=== PATIENT | male | born 1985 | race Caucasian/White ===

== ENCOUNTER 2019-03-15 18:22 | Emergency (ER) | payer BC, MEDICAID ==
--- NOTE | 2019-03-15 19:14 | Emergency Department Record ---
History of Present Illness - General Chief Complaint: Knee injury Stated Complaint: R KNEE PAIN Time Seen by Provider: 03/15/19 19:05 Source: Patient Mode of Arrival: Ambulatory Limitations: No limitations - History of Present Illness Initial Comments: pt injured his knee a week ago. it feels like it is getting worse. it was injured when he was getting out of a truck when he twisted it. it feels like its getting worse.. it hurts in the back of his knee. Complaint: Knee injury Onset/Timin -: Days(s) Injury: Knee: Right Type of Injury: Other Place: Street/outdoors Severity: Mild Improves With: Rest Worsens With: Weight bearing Context: Other Treatments Prior to Arrival: NSAIDS Travel Screening - Travel/Exposure Within Last 30 Days Have you traveled within the last 30 days?: No - Travel/Exposure Within Last Year Have you traveled outside the [place] in the last year?: No - Travel Symptoms Symptom Screening: None Review of Systems Reviewed: No additional complaints except as noted below Constitutional: Reports: As per HPI. Denies: Chills, Fever, Malaise, Night sweats, Weakness, Weight change Eyes: Reports: As per HPI. Denies: Eye discharge, Eye pain, Photophobia, Vision change ENT: Reports: As per HPI. Denies: Congestion, Dental pain, Ear pain, Epistaxis, Hearing loss, Throat pain Respiratory: Reports: As per HPI. Denies: Cough, Dyspnea, Hemoptysis, Stridor, Wheezes Cardiovascular: Reports: As per HPI. Denies: Arrhythmia, Chest pain, Dyspnea on exertion, Edema, Murmurs, Orthopnea, Palpitations, Paroxysmal nocturnal dyspnea, Rheumatic Fever, Syncope Endocrine: Reports: As per HPI. Denies: Fatigue, Heat or cold intolerance, Polydipsia, Polyuria Gastrointestinal: Reports: As per HPI. Denies: Abdominal pain, Constipation, Diarrhea, Hematemesis, Hematochezia, Melena, Nausea, Vomiting Genitourinary: Reports: As per HPI. Denies: Dysuria, Frequency, Hematuria, Incontinence, Retention, Testicular pain, Testicular mass, Urgency Musculoskeletal: Reports: As per HPI. Denies: Arthralgia, Back pain, Gout, Joint swelling, Myalgia, Neck pain Skin: Reports: As per HPI. Denies: Bruising, Change in color, Change in hair/nails, Lesions, Pruritus, Rash Neurological: Reports: As per HPI. Denies: Abnormal gait, Confusion, Headache, Numbness, Paresthesias, Seizure, Tingling, Tremors, Vertigo, Weakness Psychiatric: Reports: As per HPI. Denies: Anxiety, Auditory hallucinations, Depression, Homicidal thoughts, Suicidal thoughts, Visual hallucinations Hematological/Lymphatic: Reports: As per HPI. Denies: Anemia, Blood Clots, Easy bleeding, Easy bruising, Swollen glands Past Medical History - SOCIAL HISTORY Smoking Status: Current every day smoker Alcohol Use: Rare Drug Use: None - RESPIRATORY Hx Respiratory Disorders: No - CARDIOVASCULAR Hx Cardio Disorders: No - NEURO Hx Neuro Disorders: No - GI Hx GI Disorders: No - Hx Genitourinary Disorders: No - ENDOCRINE Hx Endocrine Disorders: No - MUSCULOSKELETAL Hx Musculoskeletal Disorders: No - PSYCH Hx Psych Problems: No - HEMATOLOGY/ONCOLOGY Hx Hematology/Oncology Disorders: No Family Medical History Any Significant Family History?: No Physical Exam - General General Appearance: Alert, Oriented x3, Cooperative, Mild distress - Head Head exam: Normal inspection - Eye Eye exam: Normal appearance, PERRL, EOMI Pupils: Normal accommodation - ENT ENT exam: Normal exam, Mucous membranes moist, Normal external ear exam, Normal orophraynx Ear exam: Normal external inspection. negative: External canal tenderness Nasal Exam: Normal inspection. negative: Discharge, Sinus tenderness Mouth exam: Normal external inspection, Tongue normal Teeth exam: Normal inspection. negative: Dental caries Throat exam: Normal inspection. negative: Tonsillar erythema, Tonsillar exudate - Neck Neck exam: Normal inspection, Full ROM. negative: Tenderness - Respiratory Respiratory exam: Normal lung sounds bilaterally. negative: Respiratory distress - Cardiovascular Cardiovascular Exam: Regular rate, Normal rhythm, Normal heart sounds - GI/Abdominal GI/Abdominal exam: Soft, Normal bowel sounds. negative: Tenderness - Rectal Rectal exam: Deferred - exam: Deferred - Extremities Extremities exam: Normal inspection, Full ROM, Normal capillary refill, Tenderness (along mcl and lcl and joint line) - Back Back exam: Reports: Normal inspection, Full ROM. Denies: Muscle spasm, Rash noted, Tenderness - Neurological Neurological exam: Alert, Normal gait, Oriented X3, Reflexes normal - Psychiatric Psychiatric exam: Normal affect, Normal mood - Skin Skin exam: Dry, Intact, Normal color, Warm Course Vital Signs 03/15/19 18:54 Temperature 98.1 F Pulse Rate 79 Respiratory 14 Rate Blood Pressure 153/87 Pulse Ox 97 Disposition Disposition: Discharge Clinical Impression: Knee sprain Qualifiers: Encounter type: initial encounter Involved ligament of knee: unspecified ligament Laterality: right Qualified Code(s): S83.91XA - Sprain of unspecified site of right knee, initial encounter Disposition: Home, Self-Care Condition: (1) Good Instructions: Knee Sprain (ED), Knee Immobilizer (ED) Additional Instructions: follow up with dr bryant. ice and elevate. return sooner if worse. motrin for pain Referrals: EVA BRYANT [DOCTOR OF OSTEOPATH] - [facility] [Provider Group] Forms: Patient Portal Access, Return to Work/School Quality - Quality Measures Quality Measures: N/A - Blood Pressure Screening Does Patient Have Any of the Following: No Blood Pressure Classification: Pre-Hypertensive BP Reading Systolic Measurement: 153 Diastolic Measurement: 87 Screening for High Blood Pressure: < Pre-Hypertensive BP, F/U Documented > [G8950] Pre-Hypertensive Follow-up Interventions: Follow-up with rescreen every year.
[2019-03-15] MEDS ORDERED: IBUPROFEN 600 MG TABLET PO ONE (19:51)
--- NOTE | 2019-03-18 14:11 | RADIOLOGY REPORT ---
EXAM: RIGHT KNEE HISTORY: PATIENT STEPPED OUT OF A TRUCK TWO MONTHS AGO WITH PAIN. TECHNIQUE: Four views of the right knee were obtained. Comparison: None. Encounter: Initial. FINDINGS: Some very minor spurring at the knee. No definite fracture, dislocation, or joint effusion identified. There may be some prepatellar soft tissue swelling. If knee symptoms persist, follow-up MRI of the right knee may be useful for further evaluation if not contraindicated. IMPRESSION: 1. NO DEFINITE FRACTURE OF THE RIGHT KNEE IDENTIFIED. 2. VERY MINOR SPURRING. 3. POSSIBLE PREPATELLAR SOFT TISSUE SWELLING. JOB NUMBER: [id number] [facility]
== END 2019-03-15 20:08 | disposition home or self-care (01) ==
LOC: ER 18:22
DX: S83.91XA Sprain of unspecified site of right knee, initial encounter (principal); X50.1XXA Overexertion from prolonged static or awkward postures, initial encounter; Y92.410 Unspecified street and highway as the place of occurrence of the external cause; F17.210 Nicotine dependence, cigarettes, uncomplicated
CPT/HCPCS: 99283

== ENCOUNTER 2019-04-23 06:59 | Day surgery (SDC) | payer BC ==
[~2019-04-23 06:59] MED LIST: ACETAMINOPHEN 1,000 MG/100 ML BTL IVPB ONE
[2019-04-23] MEDS ORDERED: KETOROLAC 30 MG/ML VIAL IVP ONE (07:00)
[2019-04-23] MEDS ORDERED: FENTANYL PF 100MCG/2ML VIAL IV ONE (07:00)
[2019-04-23] MEDS ORDERED: LIDOCAINE 2% MDV (20MG/ML) 20ML VIAL IV ONE (07:00)
[2019-04-23] MEDS ORDERED: SEVOFLURANE 250 ML INH ONE (07:00)
[2019-04-23] MEDS ORDERED: ONDANSETRON HCL IV 4 MG/2 ML VIAL IVP ONE (07:00)
[2019-04-23] MEDS ORDERED: PROPOFOL 10 MG/ML VIAL IV ONE (07:00)
[2019-04-23] MEDS ORDERED: MIDAZOLAM HCL 2MG/2ML VIAL IV ONE (07:00)
[2019-04-23] MEDS ORDERED: RINGERS SOLUTION,LACTATED 1,000 ML IV ONE (07:35)
[2019-04-23] MEDS ORDERED: BUPIVACAINE 0.25% W/EPI MPF 30ML VIAL SQ ONE (09:12)
[2019-04-23] MEDS ORDERED: HYDROCODONE/APAP 5/325MG TABLET PO PRN (09:42)
--- NOTE | 2019-04-24 17:20 | Operative Note ---
DATE OF SURGERY: 04/23/2019 PREOPERATIVE DIAGNOSIS: Torn medial meniscus of the right knee. POSTOPERATIVE DIAGNOSES: 1. Torn medial meniscus of the right knee. 2. Chondromalacia lateral femoral condyle right knee. OPERATION: 1. Arthroscopic partial medial meniscectomy right knee. 2. Arthroscopic chondroplasty lateral femoral condyle right knee. SURGEON: Simon Ryees DO ANESTHESIA: General. PROCEDURE: This 33-year-old male was taken to the operating room and placed in the supine position on the operating room table. A general anesthetic was administered and the right lower extremity was elevated, prepped with Hibiclens and draped in the usual sterile fashion, after exsanguination and tourniquet elevation to 300 mmHg. An inferior lateral portal was established with a 4 mm arthroscope and initial evaluation of the joint demonstrated essentially normal appearance of the suprapatellar pouch and articular cartilage with minimal scuffing at the patellofemoral joint. There was a sizeable osteophyte along the medial femoral condyle, but the medial femoral condyle itself did not appear to be arthritic. Probing this confirmed these findings. We entered the medial compartment and the bucket-handle tear of the medial meniscus was evident. This was easily displaced. There was both horizontal and vertical components and felt not to be repairable. The tear was macerated on the undersurface, utilizing the basket forceps, we detached it posteriorly and then medially and further smoothed, trimmed, and balanced the remaining meniscus. From the anterior attachment to about the 3 o'clock position, the meniscus was essentially normal. The articular cartilage of the medial femoral condyle was unremarkable. The tear was very near the meniscal synovial junction of the posterior horn and the portion of the body. The anterior cruciate ligament demonstrated some what I felt was mild laxity, although the fibers were still intact, it just did not seem to have the same tenacity and resilience of normal anterior cruciate ligament, but no detachment of the fibers was identified. The lateral compartment was entered and grade 2 chondromalacia of the entire weightbearing surface of the lateral femoral condyle was present. Loose flaps of articular cartilage were present and these were removed with the rotating shaver. There was no evidence of tearing of the lateral meniscus. The wound was copiously irrigated, suctioned, and reassessed. No additional findings were subsequently made and the wound was irrigated, suctioned, and the instruments were removed. The portals were infiltrated with 0.25% Marcaine with epinephrine. Sterile dressings applied. The tourniquet and knee thompson were released and the patient taken to the recovery room in satisfactory condition. GROSS PATHOLOGY: This patient demonstrated bucket-handle tearing of the medial meniscus as described. There was also grade 2 chondromalacia of the medial femoral condyle and minimal scuffing of the articular cartilage of the patellofemoral joint. An odd-appearing osteophyte was present along the medial femoral condyle, but it was not further disturbed. MTDD
== END 2019-04-23 10:05 | disposition home or self-care (01) ==
LOC: SUR 06:59
PROVIDERS: ATTEND Orthopaedic Surgery
DX: S83.241A Other tear of medial meniscus, current injury, right knee, initial encounter (principal)
CPT/HCPCS: 29881; 01400; J1885; J2405; J3010; J7120